=== PATIENT | female | born 1985 | race Caucasian/White ===

== ENCOUNTER → 2021-08-19 | Outpatient (CLI) | payer BC ==
[~2021-08-19] MED LIST: COLACE 100MG C100 MG PO; FERROUS SULFAT325 M2 PO; IBUPROFEN600 MG PO; LORTAB 5-325 M1 EACH PO; PRENATAL 19 TA1 EAC1 PO
== END ==
LOC: LAB 08:31
DX: N91.2 Amenorrhea, unspecified (principal)
CPT/HCPCS: 36415; 84702

== ENCOUNTER 2022-04-27 22:36 | Outpatient (CLI) | payer BC | END 2022-04-28 01:43 | disposition home or self-care (01) | LOC: GENOP 22:36 | DX: Z34.82 Encounter for supervision of other normal pregnancy, second trimester (principal); Z3A.26 26 weeks gestation of pregnancy | CPT/HCPCS: G0463 ==